=== PATIENT | female | born 1960 | race Caucasian/White ===

== ENCOUNTER → 2016-09-21 | Outpatient (CLI) | payer MEDICAID | LOC: CIMAGING 12:41 | PROVIDERS: ATTEND Family Medicine | DX: M54.5 Low back pain (principal); M21.722 Unequal limb length (acquired), left humerus; G89.29 Other chronic pain | CPT/HCPCS: 72100-PO ==

== ENCOUNTER → 2016-10-14 | Outpatient (CLI) | payer MEDICAID | LOC: FIMAGING 11:11 | PROVIDERS: ATTEND Family Medicine | DX: N64.4 Mastodynia (principal) | CPT/HCPCS: G0204 ==

== ENCOUNTER → 2016-10-31 | Outpatient (CLI) | payer MEDICAID | LOC: CIMAGING 10:41 | PROVIDERS: ATTEND Family Medicine | DX: J40 Bronchitis, not specified as acute or chronic (principal); M25.512 Pain in left shoulder; R93.8 Abnormal findings on diagnostic imaging of other specified body structures | CPT/HCPCS: 71020-PO; 73000-PO ==

== ENCOUNTER → 2016-11-23 | Outpatient (CLI) | payer MEDICAID | LOC: FIMAGING 10:08 | PROVIDERS: ATTEND Psychiatry & Neurology Neurology | DX: G43.909 Migraine, unspecified, not intractable, without status migrainosus (principal) ==

== ENCOUNTER → 2017-07-07 | Outpatient (CLI) | payer MEDICAID | LOC: CIMAGING 16:27 | PROVIDERS: ATTEND Family Medicine | DX: R07.81 Pleurodynia (principal) | CPT/HCPCS: 71101-PO ==

== ENCOUNTER → 2017-09-24 | Outpatient (CLI) | payer MEDICAID ==
[~2017-09-24] MED LIST: IOPAMIDOL (ISOVUE-300) 100 ML BTL ONE
== END ==
LOC: CIMAGING 09:46
PROVIDERS: ATTEND Family Medicine
DX: R10.13 Epigastric pain (principal); E27.9 Disorder of adrenal gland, unspecified; N20.0 Calculus of kidney; I25.10 Atherosclerotic heart disease of native coronary artery without angina pectoris; Z80.0 Family history of malignant neoplasm of digestive organs
CPT/HCPCS: 74160-PO; Q9967

== ENCOUNTER → 2017-09-25 | Outpatient (CLI) | payer MEDICAID | LOC: FIMAGING 09-18 09:15 | PROVIDERS: ATTEND Psychiatry & Neurology Neurology | DX: M51.36 Other intervertebral disc degeneration, lumbar region (principal) ==

== ENCOUNTER → 2017-10-16 | Outpatient (CLI) | payer MEDICAID | LOC: FIMAGING 14:05 | PROVIDERS: ATTEND Family Medicine | DX: D35.02 Benign neoplasm of left adrenal gland (principal) ==